=== PATIENT | male | born 1960 | race Caucasian/White ===

== ENCOUNTER 2017-03-03 21:34 | Emergency (ER) | payer BC ==
[2017-03-03 23:51] VITALS: BP 153/97
== END 2017-03-03 23:51 | disposition home or self-care (01) ==
LOC: ED 21:34
DX: S01.01XA Laceration without foreign body of scalp, initial encounter (principal); W22.8XXA Striking against or struck by other objects, initial encounter; Y93.89 Activity, other specified; Y92.89 Other specified places as the place of occurrence of the external cause; Y99.8 Other external cause status